=== PATIENT | male | born 1960 | race Caucasian/White ===

== ENCOUNTER 2022-01-01 06:08 | Day surgery (SDC) | payer OTHER ==
[2021-12-30 11:13] VITALS: BMI 26.1
[2022-01-01 06:46] VITALS: RESP 18; TEMP 97.9
[2022-01-01] MEDS ORDERED: LIDOCAINE HCL 2% (20ML MULTI-DOSE VIAL) ONE (07:28)
[2022-01-01] MEDS ORDERED: GUM MASTIC/STORAX/MSAL/ALCOHOL 1 DRP DROPSBTL MC ONE (07:36)
[2022-01-01] MEDS ORDERED: MIDAZOLAM HCL 2 MG/2 ML SINGLE DOSE VIAL ONE (07:50)
[2022-01-01] MEDS ORDERED: PROPOFOL 20 ML ONE (07:51)
[2022-01-01] MEDS ORDERED: ONDANSETRON 4 MG/2 ML VIAL IVPUSH PRN (08:03)
[2022-01-01] MEDS ORDERED: oxyCODONE HCL 5 MG TABLET PO PRN (08:03)
[2022-01-01] MEDS ORDERED: LACTATED RINGERS SOLUTION 1,000 ML IV SCH (08:15)
[2022-01-01 09:14] VITALS: BP 142/65; PULSE 55
== END 2022-01-01 09:21 | disposition home or self-care (01) ==
LOC: FASU 06:08
PROVIDERS: ATTEND Orthopaedic Surgery Hand Surgery
PROC: 0LN80ZZ Release Left Hand Tendon, Open Approach (ICD-10-PCS; principal; 2022-01-01 08:20)
DX: M65.332 Trigger finger, left middle finger (principal)